=== PATIENT | female | born 1980 | race Caucasian/White ===

== ENCOUNTER 2021-05-16 21:21 | Emergency (ER) | payer BC ==
[~2021-05-16] VITALS: Ht 165.1 cm; Wt 68.0 kg
[2021-05-16 21:21] VITALS: BP 132/71
[2021-05-16] MEDS ORDERED: AZIT250T13 PO (22:10)
== END 2021-05-16 22:26 | disposition home or self-care (01) ==
LOC: ER 21:24
DX: S61.412A Laceration without foreign body of left hand, initial encounter (principal); Z88.0 Allergy status to penicillin; Z88.2 Allergy status to sulfonamides; W54.0XXA Bitten by dog, initial encounter; Y93.89 Activity, other specified; Y92.89 Other specified places as the place of occurrence of the external cause; Y99.8 Other external cause status
CPT/HCPCS: 73130-TC; A6403